=== PATIENT | male | born 1975 | race Caucasian/White ===

== ENCOUNTER 2021-07-28 17:24 | Emergency (ER) | payer OTHER, SELFPAY ==
[2021-07-28 17:36] VITALS: BP 133/77; PULSE 90; RESP 17; TEMP 36.3; O2SAT 97
[2021-07-28] MEDS: Balanced Salt Solution 15 ML BTL OP (17:46)
[2021-07-28] MEDS: Fluorescein STRIPS 100/BOX 1 MG OP (17:46)
[2021-07-28] MEDS: Erythromycin Ophth Oint 3.5 GM TUBE OP (17:46)
[2021-07-28] MEDS: Tetracaine 0.5% 4 ML BTL OP (17:47)
--- NOTE | 2021-07-28 18:05 | ED.GENADUL_ITS ---
Discharge Plan Disposition Patient Disposition: HOME Condition: Improving Discharge Details Clinical Impression: Injury of conjunctiva and corneal abrasion of left eye w/o FB, Subconjunctival hematoma Primary Care Provider: Fransisca,Local ED Provider: Alex Barrera Home Meds and New Rx's Prescriptions: Continued losartan 50 mg Tablet 50 mg PO DAILY fluticasone propionate 50 mcg/actuation Bunn,Suspension 2 spray INTRANASAL DAILY PRN tadalafil [Cialis] 20 mg Tablet 20 mg PO DAILY PRN Rx Instructions: administer approximately 30min before sexual activity; do not use more than 1 dose per 24hrs Discharge Instructions Instructions: Corneal Abrasion (ED) Additional Instructions: You have a corneal abrasion of the left eye along with a subconjunctival hematoma. We will refer you to [facility] for follow-up. A referral was placed today and we will asked that she call the office Friday. The office number is [phone] Apply erythromycin ointment 4-5 times daily to left eye. May apply cool compress. May use Tylenol and ibuprofen as needed for pain. The subconjunctival hematoma will have color changes like a bruise as a slowly resolves. Return to the ER for any acute concerns. No use of contacts until cleared by optometry. Medical Decision Making This is a 45-year-old male who was weed whacking when he was struck by a hard object he believes was a rock in the left eye. He arrives to the ER with a left subconjunctival hematoma, and slit-lamp exam reveals a corneal abrasion. There is no Flor sign present. Visual acuity (corrected) was 20/30 right, 20/30 left, 20/30 both. Patient replaced on erythromycin ointment. We will refer to a local optometry office for follow-up. He is stable and appropriate for outpatient management. HPI General Mode of arrival: ambulatory . Date/Time Provider Initiated Documentation: 07/28/21 17:39 . Limitations to Documentation: no limitations . Information obtained by: patient . History of Present Illness 45 year old M presents to the emergency department with the chief complaint of Right eye injury, described as mild, Quality is described as constant, and is localized to the eyes and right. Patient reports no radiation. Patient started experiencing this hour(s) and it has been constant. No relieving factors improve symptom(s), No exacerbating factors reported . Patient notes no other symptoms.. Patient did receive the following treatments prior to arrival, none Related Data Home Medications Medication Instructions Recorded Confirmed fluticasone propionate 50 2 spray intranasal DAILY PRN 07/28/21 07/28/21 mcg/actuation nasal spray,suspension losartan 50 mg tablet 50 mg PO DAILY 07/28/21 07/28/21 tadalafil 20 mg tablet (Cialis) 20 mg PO DAILY PRN 07/28/21 07/28/21 Allergies Allergy/AdvReac Type Severity Reaction Status Date / Time lisinopril AdvReac Intermediate Cough Unverified 07/28/21 17:48 General Stated Complaint: EyeProblem BIANCA: 4 Review of Systems Narrative: No other injury, no change to vision PFSH All Active Problems (Updated 07/28/21 @ 18:07 by Alex Barrera MD) Injury of conjunctiva and corneal abrasion of left eye w/o FB (Acute) Subconjunctival hematoma (Acute) Social History Smoking/Tobacco Use Status: Never Smoking risk assessment performed?: Yes Alcohol Intake: current Alcohol Intake frequency: a few times a week Alcohol type: beer, wine and hard liquor Drug use: Never Substance use type: does not use Do you feel safe at home: Yes Do you feel safe in your relationship?: Yes Exam Narrative Exam Narrative: GEN: awake, alert, oriented 3. Pleasant, well groomed, interactive. HEAD: Normocephalic, atraumatic ENT: Mucous membranes moist, oropharynx unremarkable, External ear exam unremarkable EYES: PERRL, EOMI, the left eyelid has remained with corneal abrasion, negative Flor sign, no foreign body, it is outside the axis of vision. There is sub conjunctival hematoma present. NECK: Full ROM, no JENNIFER, no menigismus CHEST/RESP: No respiratory distress Neuro: Grossly normal neurologic exam, conversant, interactive. Psych: Speech fluent, thoughts congruent, affect normal Course Vital Signs Vital signs: Vital Signs Temperature 36.3 C L 07/28/21 17:36 Pulse 90 07/28/21 17:36 Respiratory Rate 17 07/28/21 17:36 Blood Pressure 133/77 07/28/21 17:36 Pulse Oximetry 97 07/28/21 17:36 Temperature 36.3 C L 07/28/21 17:36 Temperature Source Temporal Artery Scan 07/28/21 17:36 Pulse 90 07/28/21 17:36 Respiratory Rate 17 07/28/21 17:36 Respiratory Effort Non-Labored 07/28/21 17:40 Blood Pressure 133/77 07/28/21 17:36 Pulse Oximetry 97 07/28/21 17:36 Oxygen Delivery Method Room Air 07/28/21 17:36 Oxygen Flow Rate 0 07/28/21 17:36 PAWSS Have you Been Recently Intoxicated or Drunk Within the Last 30 days?: No Have you Ever Experienced Previous Episodes of Alcohol Withdrawal?: No Have you ever Experienced Withdrawal Seizures?: No Have you ever Experienced Delirium Tremens(DT)s?: No Have you ever undergone Alcohol Rehabilitation Treatment (i.e, inpt ot outpatient treatment programs)?: No Have you ever Experienced Blackouts?: Yes Have you ever Combined Alcohol with other Downers within the last 90 days?: No Have you ever Combined Alcohol with any other Substance of Abuse during the last 90 days?: No Positive Blood Alcohol level on Presentation? [PCS.BAL]: Unable to Obtain Evidence of Increased Autonomic Activity (i.e. HR>120, tremor, sweating, agitation, nausea)?: No Result: 1
--- NOTE | 2021-07-28 18:12 | NUR.NOTE ---
Dr. Barrera requested referral to Dr. Landry for Left Corneal Abrasion. [facility]B
== END 2021-07-28 18:15 | disposition home or self-care (01) ==
PROVIDERS: Emergency Provider Emergency Medicine
DX: S05.02XA Injury of conjunctiva and corneal abrasion without foreign body, left eye, initial encounter (principal); W20.8XXA Other cause of strike by thrown, projected or falling object, initial encounter
CPT/HCPCS: 99283